=== PATIENT | female | born 1985 | race Caucasian/White ===

== ENCOUNTER 2019-05-29 14:44 | Outpatient (CLI) | payer BC ==
--- NOTE | 2019-05-29 14:58 | RAD ---
EXAM: Chest PA and lateral: HISTORY: Chest pain at rest COMPARISON: None FINDINGS: Heart: Normal cardiac silhouette Aorta: Unremarkable Pulmonary vessels: Normal Costophrenic angles: Costophrenic angles are clear. Lungs: No consolidation or masses. Pneumothorax: No pneumothorax Osseous structures: No osseous abnormalities IMPRESSION: No acute cardiopulmonary process.
== END 2019-05-29 14:45 | disposition home or self-care (01) ==
LOC: BICRAD 14:44
PROVIDERS: ATTEND Family Medicine
DX: R07.9 Chest pain, unspecified (principal)
CPT/HCPCS: 71046

== ENCOUNTER 2020-03-04 07:52 | Outpatient (CLI) | payer BC ==
--- NOTE | 2020-03-04 08:58 | ULT ---
SOFT TISSUE ULTRASOUND: Date: 03/04/2020 INDICATION: Left axillary lump. FINDINGS: Directed ultrasound at site of palpable concern in the right axilla. No evidence of mass or adenopathy. No fluid or abscess collection. IMPRESSION: Negative soft tissue ultrasound left axilla. POS: [facility]
== END 2020-03-04 07:53 | disposition home or self-care (01) ==
LOC: SCSULT 07:52
PROVIDERS: ATTEND Family Medicine
DX: N63.32 Unspecified lump in axillary tail of the left breast (principal)
CPT/HCPCS: 76999

== ENCOUNTER 2022-07-27 11:50 | Outpatient (CLI) | payer OTHER | END 2022-07-27 11:51 | disposition home or self-care (01) | LOC: BICRAD 11:50 | PROVIDERS: ATTEND Family Medicine | DX: M25.562 Pain in left knee (principal) ==